=== PATIENT | male | born 1985 | race Caucasian/White ===

== ENCOUNTER 2016-08-29 09:50 | Emergency (ER) | payer OTHER ==
--- NOTE | 2016-08-29 11:20 | ED CLINICAL REPORT ---
Clinical Report - Physicians/Mid Levels [facility] [address] [place] [address] 08/29/2016 9:54 Patient: TRENT HEREDIA Time Seen: 10:11. Arrived- By private vehicle. Historian- patient. HISTORY OF PRESENT ILLNESS Chief Complaint: FALL. Location of injuries- chest. The injury occurred about 3 days ago. (forest). Fell (Pt hit his anterior L CW on a root.). The patient complains of moderate pain. No blow to the head, neck pain, loss of consciousness or seizure. Not dazed. REVIEW OF SYSTEMS No numbness, dizziness, hearing loss, difficulty breathing or weakness. No headache, nausea, abdominal pain, laceration or fever. No vomiting or urinary problems. He has had chest pain but no pain on weight bearing. All systems otherwise negative, except as recorded above. PAST HISTORY Problems: Hypertension. Urinary Calculi. Immunizations. Abscess. Diabetes Mellitus. Substance Abuse. Additional Surgeries: Amputation left little finger. Kidney cleaned of infection and stones. Medications: Ibuprofen prn. insulin humalog sliding scale, before meals. Lantus Subcutaneous 40 units in am . Methadone HCl Oral 50 mg daily. Allergies: Keflex. Shellfish-derived Products. SOCIAL HISTORY Smoker- current status unknown. History of drug use: marijuana. No alcohol use. ADDITIONAL NOTES The nursing notes have been reviewed. PHYSICAL EXAM Vital Signs: 08/29/2016 10:02 BP: 143/78. HR: 86. RR: 18. O2 saturation: 95%. Temp: 98.7 F. Pain level now: 7/10. Have been reviewed. Appearance: Alert. Oriented X3. No acute distress. Head: (Atraumatic.). Eyes: Pupils equal, round and reactive to light. EOM intact. ENT: No dental injury. Neck: Painless ROM. CVS: Heart sounds normal. Pulses normal. Respiratory: Chest wall injury: moderate tenderness and mild swelling located in the upper, left and anterior chest. No laceration. No abrasion. No ecchymosis. No deformity. No splinting present. No paradoxical movement. Abdomen: No visible injury. Soft and nontender. Back: No tenderness. ROM normal. Skin: Skin intact. Skin warm and dry. Normal skin color. Normal skin turgor. Extremities: Normal inspection. Pelvis stable. Extremities atraumatic. No lower extremity edema. Neuro: Oriented X 3. No motor deficit. No sensory deficit. LABS, X-RAYS, AND EKG Sternum / Ribs X-rays: No fracture present. Normal lung markings present. Soft tissues normal. No bony lesion present. Views: left ribs. AP of chest. Technique: good. The X-rays were independently viewed by me, interpreted by the radiologist and contemporaneously by me and discussed with the radiologist. Prior films were not available for comparison. Pulse Oximetry: 08/29/2016 10:02 O2 saturation: 95%. (FIO2 - room air). Interpretation: normal. PROGRESS AND PROCEDURES Course of Care: Patient was worked up for his chest pain with an x-ray, which was negative. Patient counseled in person regarding the patient's stable condition, test results, diagnosis and need for follow-up. Old medical records reviewed. Disposition: Discharged. Condition: stable. CLINICAL IMPRESSION Single contusion to the left anterior chest. INSTRUCTIONS Apply ice for 20 minutes three times a day as needed and until better. Don't apply ice directly to skin and don't use while asleep. Do not work today. (Your chest x-ray looks good--no broken ribs. Your lungs also look good.). Warnings: GENERAL WARNINGS: Return or contact your physician immediately if your condition worsens or changes unexpectedly, if not improving as expected, or if other problems arise. Your Current Medications: CONTINUE TAKING THE FOLLOWING MEDICATIONS: Ibuprofen prn*. insulin humalog sliding scale* : before meals. Lantus Subcutaneous : 40 units in am. Methadone HCl Oral : 50 mg daily. Follow-up: Follow up with your doctor as needed. Understanding of the discharge instructions verbalized by patient. (Electronically signed by Kelsey Smith MD 09/03/2016 21:55)
--- NOTE | 2016-08-29 11:20 | ED ORDER SUMMARY ---
..... Patient: TRENT HEREDIA OrderSheet [facility] VisitID: [id number] [address] [place] [address] 31y, M Registration Date/Time: 08/29/2016 ORDER SHEET Weight: 90.7 kg (stated) Allergies: Keflex, Shellfish-derived Products GENERAL ORDERS: Ribs Unilat w PA Chest Left Urgent (10:17 08/29/2016 Donnie WATTERS) (Ack 10:42 [facility]) (11:35 Ana Amado) MEDICATION ORDERS: IV FLUIDS: ORDER SHEET NOTES: [Electronically signed by Alyson Baptiste R.N. (11:37 08/29/2016)] [Electronically signed by Kelsey Smith MD (21:55 09/03/2016)] [Electronically locked/signed by Alyson Baptiste R.N. (11:37 08/29/2016)]
--- NOTE | 2016-08-29 11:20 | ED ORDER SUMMARY ---
..... Patient: TRENT HEREDIA OrderSheet [facility] VisitID: [id number] [address] [place] [address] 31y, M Registration Date/Time: 08/29/2016 ORDER SHEET Weight: 90.7 kg (stated) Allergies: Keflex, Shellfish-derived Products GENERAL ORDERS: Ribs Unilat w PA Chest Left Urgent (10:17 08/29/2016 Donnie WATTERS) (Ack 10:42 [facility]) (11:35 Ana Amado) MEDICATION ORDERS: IV FLUIDS: ORDER SHEET NOTES: [Electronically signed by Alyson Baptiste R.N. (11:37 08/29/2016)] [Electronically signed by Kelsey Smith MD (21:55 09/03/2016)] [Electronically locked/signed by Alyson Baptiste R.N. (11:37 08/29/2016)]
--- NOTE | 2016-08-29 11:20 | ED NURSING NOTES ---
Clinical Report - Nurses [facility] [address] [place] [address] 08/29/2016 9:54 Patient: TRENT HEREDIA TRIAGE Triage time 10:02. Acuity: LEVEL 4. Chief Complaint: FALL (GLF Thursday - tripped over a large tree root, then landed on the root with his left chest.). 10:07 08/29/16. SEPSIS SCREEN: Sepsis Screen. Negative (no infection suspected/documented). MAGGIE COMA SCORE: Maggie Coma Scale: 15- eyes open spontaneously (4); best verbal response- oriented x 4 (5); best motor response- obeys commands (6). --10:07 Danielito Eng R.N. 10:02 08/29/16. BP: 143/78. HR: 86. RR: 18. O2 saturation: 95% on room air. Temp: 98.7 F (oral). Pain level now: 12/01. --10:07 Danielito Eng R.N. Weight: 90.7 kg stated. Height/Length: 73 inches Per Patient. BMI: 26.4. --10:05 Danielito Eng R.N. Medications insulin humalog sliding scale, before meals. Lantus Subcutaneous 40 units in am . Methadone HCl Oral 50 mg daily. --10:04 Danielito Eng R.N. Ibuprofen prn. --10:04 Danielito Eng R.N. Allergies Keflex. --10:04 Danielito Eng R.N. Shellfish-derived Products. --10:04 Danielito Eng R.N. History Arrived by private vehicle. Historian: patient. 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 PAST MEDICAL HX: Tetanus status: up-to-date. SOCIAL HX: Light tobacco smoker (cigarette)- less than 1/2 a pack per day. History of occasional drug use: marijuana. No alcohol use. ABUSE ASSESSMENT: No report of abuse. --10:07 Danielito Eng R.N. PROBLEMS: Ureterolithiasis. Hypertension. Urinary Calculi. UTI - Urinary Tract Infection. Abscess. Diabetes Mellitus. Substance Abuse. --10: Danielito Eng R.N. The following entry was modified by Kelsey Smith MD, 10:18 Reason - duplicate <<STRICKEN ENTRY-- Lifestyle / Substance Problems. --10:18 Kelsey Smith MD --END STRIKE>>. ADDITIONAL SURGERIES: Amputation left little finger. Kidney cleaned of infection and stones. --10: Danielito Eng R.N. Interventions ID band on patient. To treatment room. --10: Danielito Eng R.N. PHYSICAL ASSESSMENT 10:08/29/16. Ambulatory to room. GENERAL / NEURO / PSYCH: Alert. Oriented X 4. Appears in no acute distress. Appears in pain. HEENT: Pupils equal, round and reactive to light. Head non-tender. RESPIRATORY: Respirations not labored. Left upper, mid-, anterior and posterior chest wall tenderness. Breath sounds within normal limits. ( increased pain with breathing). CVS: Pulses within normal limits. Capillary refill less than 2 seconds. GI / : Abdomen soft and nontender. EXTREMITIES: Extremities exhibit normal ROM. Neuro-vascular status intact to the extremity. SKIN: Skin intact. Skin is warm and dry. --10:09 Danielito Eng R.N. NURSING PROGRESS NOTES 10:08/29/16. Patient gowned. Reassurance given. Two patient identifiers checked. Call light placed in reach. Bed placed in lowest position. Brakes of bed on. Patient ready for evaluation- chart flagged. --10:10 Danielito Eng R.N. 10:15. Patient walked to radiology with tech. --10:30 Joey Dykes R.N. 10:30. Patient walked back to ED from radiology with tech. --10:31 Joey Dykes R.N. DISPOSITION / DISCHARGE Condition at departure: improved. No learning barriers present. Discharge instructions provided and reviewed with the patient. Treatments reviewed (ice for chest). Work note given. Patient verbalized understanding. Written instructions provided in Czech. The patient was discharged by the physician. He was discharged home. He left the Emergency Department ambulatory and via private vehicle. Driving (Friend). ( Patient has no further questions). --11:35 Alyson Baptiste R.N. 11:32 08/29/16. BP: 127/72 (regular adult cuff) taken on the left arm, while sitting. HR: 80. RR: 16 (regular). O2 saturation: 96% on room air. Temp: 98.7 F (oral). Pain level now: 12/01. --11:35 Alyson Baptiste R.N. Departure time: 11:36 Aug 29 2016. --11:36 Alyson Baptiste R.N. Locked/Released at 08/29/2016 11:37 by Alyson Baptiste R.N.
--- NOTE | 2016-08-29 11:20 | ED NURSING NOTES ---
Clinical Report - Nurses [facility] [address] [place] [address] 08/29/2016 9:54 Patient: TRENT HEREDIA TRIAGE Triage time 10:02. Acuity: LEVEL 4. Chief Complaint: FALL (GLF Thursday - tripped over a large tree root, then landed on the root with his left chest.). 10:07 08/29/16. SEPSIS SCREEN: Sepsis Screen. Negative (no infection suspected/documented). MAGGIE COMA SCORE: Maggie Coma Scale: 15- eyes open spontaneously (4); best verbal response- oriented x 4 (5); best motor response- obeys commands (6). --10:07 Danielito Eng R.N. 10:02 08/29/16. BP: 143/78. HR: 86. RR: 18. O2 saturation: 95% on room air. Temp: 98.7 F (oral). Pain level now: 12/01. --10:07 Danielito Eng R.N. Weight: 90.7 kg stated. Height/Length: 73 inches Per Patient. BMI: 26.4. --10:05 Danielito Eng R.N. Medications insulin humalog sliding scale, before meals. Lantus Subcutaneous 40 units in am . Methadone HCl Oral 50 mg daily. --10:04 Danielito Eng R.N. Ibuprofen prn. --10:04 Danielito Eng R.N. Allergies Keflex. --10:04 Danielito Eng R.N. Shellfish-derived Products. --10:04 Danielito Eng R.N. History Arrived by private vehicle. Historian: patient. 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 PAST MEDICAL HX: Tetanus status: up-to-date. SOCIAL HX: Light tobacco smoker (cigarette)- less than 1/2 a pack per day. History of occasional drug use: marijuana. No alcohol use. ABUSE ASSESSMENT: No report of abuse. --10:07 Danielito Eng R.N. PROBLEMS: Ureterolithiasis. Hypertension. Urinary Calculi. UTI - Urinary Tract Infection. Abscess. Diabetes Mellitus. Substance Abuse. --10: Danielito Eng R.N. The following entry was modified by Kelsey Smith MD, 10:18 Reason - duplicate <<STRICKEN ENTRY-- Lifestyle / Substance Problems. --10:18 Kelsey Smith MD --END STRIKE>>. ADDITIONAL SURGERIES: Amputation left little finger. Kidney cleaned of infection and stones. --10: Danielito Eng R.N. Interventions ID band on patient. To treatment room. --10: Danielito Eng R.N. PHYSICAL ASSESSMENT 10:08/29/16. Ambulatory to room. GENERAL / NEURO / PSYCH: Alert. Oriented X 4. Appears in no acute distress. Appears in pain. HEENT: Pupils equal, round and reactive to light. Head non-tender. RESPIRATORY: Respirations not labored. Left upper, mid-, anterior and posterior chest wall tenderness. Breath sounds within normal limits. ( increased pain with breathing). CVS: Pulses within normal limits. Capillary refill less than 2 seconds. GI / : Abdomen soft and nontender. EXTREMITIES: Extremities exhibit normal ROM. Neuro-vascular status intact to the extremity. SKIN: Skin intact. Skin is warm and dry. --10:09 Danielito Eng R.N. NURSING PROGRESS NOTES 10:08/29/16. Patient gowned. Reassurance given. Two patient identifiers checked. Call light placed in reach. Bed placed in lowest position. Brakes of bed on. Patient ready for evaluation- chart flagged. --10:10 Danielito Eng R.N. 10:15. Patient walked to radiology with tech. --10:30 Joey Dykes R.N. 10:30. Patient walked back to ED from radiology with tech. --10:31 Joey Dykes R.N. DISPOSITION / DISCHARGE Condition at departure: improved. No learning barriers present. Discharge instructions provided and reviewed with the patient. Treatments reviewed (ice for chest). Work note given. Patient verbalized understanding. Written instructions provided in Iraqi. The patient was discharged by the physician. He was discharged home. He left the Emergency Department ambulatory and via private vehicle. Driving (Friend). ( Patient has no further questions). --11:35 Alyson Baptiste R.N. 11:32 08/29/16. BP: 127/72 (regular adult cuff) taken on the left arm, while sitting. HR: 80. RR: 16 (regular). O2 saturation: 96% on room air. Temp: 98.7 F (oral). Pain level now: 12/01. --11:35 Alyson Baptiste R.N. Departure time: 11:36 Aug 29 2016. --11:36 Alyson Baptiste R.N. Locked/Released at 08/29/2016 11:37 by Alyson Baptiste R.N.
--- NOTE | 2016-08-29 11:20 | ED CLINICAL REPORT ---
Clinical Report - Physicians/Mid Levels [facility] [address] [place] [address] 08/29/2016 9:54 Patient: TRENT HEREDIA Time Seen: 10:11. Arrived- By private vehicle. Historian- patient. HISTORY OF PRESENT ILLNESS Chief Complaint: FALL. Location of injuries- chest. The injury occurred about 3 days ago. (forest). Fell (Pt hit his anterior L CW on a root.). The patient complains of moderate pain. No blow to the head, neck pain, loss of consciousness or seizure. Not dazed. REVIEW OF SYSTEMS No numbness, dizziness, hearing loss, difficulty breathing or weakness. No headache, nausea, abdominal pain, laceration or fever. No vomiting or urinary problems. He has had chest pain but no pain on weight bearing. All systems otherwise negative, except as recorded above. PAST HISTORY Problems: Hypertension. Urinary Calculi. Immunizations. Abscess. Diabetes Mellitus. Substance Abuse. Additional Surgeries: Amputation left little finger. Kidney cleaned of infection and stones. Medications: Ibuprofen prn. insulin humalog sliding scale, before meals. Lantus Subcutaneous 40 units in am . Methadone HCl Oral 50 mg daily. Allergies: Keflex. Shellfish-derived Products. SOCIAL HISTORY Smoker- current status unknown. History of drug use: marijuana. No alcohol use. ADDITIONAL NOTES The nursing notes have been reviewed. PHYSICAL EXAM Vital Signs: 08/29/2016 10:02 BP: 143/78. HR: 86. RR: 18. O2 saturation: 95%. Temp: 98.7 F. Pain level now: 7/10. Have been reviewed. Appearance: Alert. Oriented X3. No acute distress. Head: (Atraumatic.). Eyes: Pupils equal, round and reactive to light. EOM intact. ENT: No dental injury. Neck: Painless ROM. CVS: Heart sounds normal. Pulses normal. Respiratory: Chest wall injury: moderate tenderness and mild swelling located in the upper, left and anterior chest. No laceration. No abrasion. No ecchymosis. No deformity. No splinting present. No paradoxical movement. Abdomen: No visible injury. Soft and nontender. Back: No tenderness. ROM normal. Skin: Skin intact. Skin warm and dry. Normal skin color. Normal skin turgor. Extremities: Normal inspection. Pelvis stable. Extremities atraumatic. No lower extremity edema. Neuro: Oriented X 3. No motor deficit. No sensory deficit. LABS, X-RAYS, AND EKG Sternum / Ribs X-rays: No fracture present. Normal lung markings present. Soft tissues normal. No bony lesion present. Views: left ribs. AP of chest. Technique: good. The X-rays were independently viewed by me, interpreted by the radiologist and contemporaneously by me and discussed with the radiologist. Prior films were not available for comparison. Pulse Oximetry: 08/29/2016 10:02 O2 saturation: 95%. (FIO2 - room air). Interpretation: normal. PROGRESS AND PROCEDURES Course of Care: Patient was worked up for his chest pain with an x-ray, which was negative. Patient counseled in person regarding the patient's stable condition, test results, diagnosis and need for follow-up. Old medical records reviewed. Disposition: Discharged. Condition: stable. CLINICAL IMPRESSION Single contusion to the left anterior chest. INSTRUCTIONS Apply ice for 20 minutes three times a day as needed and until better. Don't apply ice directly to skin and don't use while asleep. Do not work today. (Your chest x-ray looks good--no broken ribs. Your lungs also look good.). Warnings: GENERAL WARNINGS: Return or contact your physician immediately if your condition worsens or changes unexpectedly, if not improving as expected, or if other problems arise. Your Current Medications: CONTINUE TAKING THE FOLLOWING MEDICATIONS: Ibuprofen prn*. insulin humalog sliding scale* : before meals. Lantus Subcutaneous : 40 units in am. Methadone HCl Oral : 50 mg daily. Follow-up: Follow up with your doctor as needed. Understanding of the discharge instructions verbalized by patient. (Electronically signed by eKlsey Smith MD 09/03/2016 21:55)
--- NOTE | 2016-08-29 11:28 | DIAGNOSTIC IMAGING REPORT ---
PROCEDURE: XR RIBS UNILAT W/PA CHEST-LT INDICATION: TRAUMA/INJURY TECHNIQUE: Two views of the left ribs with single PA view chest. COMPARISON: None. FINDINGS: LEFT RIBS: No displaced rib fractures. No suspicious rib lesions. CHEST: Normal cardiomediastinal contour. Clear lungs without pleural effusion, pneumothorax, or contusion. The other visible osseous structures are intact. IMPRESSION: 1. Intact left ribs. 2. Normal chest without radiographic evidence of trauma.
--- NOTE | 2016-09-03 21:55 | ED MED RECONCILIATION SUMMARY ---
Patient: TRENT HEREDIA Medication Reconciliation Report [facility] VisitID: [id number] [address] [place] [address] 31y, M Registration Date/Time: 08/29/2016 Weight: 90.7 kg Height/Length: 73 in. BMI: 26.4 ALLERGIES: Keflex, Shellfish-derived Products The patient's Home Medications are listed below: CONTINUE TAKING THE FOLLOWING MEDICATIONS: Ibuprofen prn insulin humalog sliding scale, before meals Lantus Subcutaneous 40 units in am Methadone HCl Oral 50 mg daily The source(s) of the original Home Medication information: Not obtained. The following Medications were given to the patient in the Emergency Department: None. The following Medications were prescribed to the patient: None.
--- NOTE | 2016-09-03 21:55 | ED MAR SUMMARY ---
..... Medication Administration Record [facility] [address] [place] [id number] Patient: TRENT HEREDIA Visit ID: [id number] 31y, M Weight: 90.7 kg Height/Length: 73 in BMI: 26.4 ALLERGIES: Keflex, Shellfish-derived Products
--- NOTE | 2016-09-03 21:55 | ED DISCHARGE INSTRUCTIONS ---
Patient: TRENT HEREDIA General Instructions [facility] VisitID: [id number] [place] [address] 31y, M Registration Date/Time: 08/29/2016 Single contusion to the left anterior chest. INSTRUCTIONS Apply ice for 20 minutes three times a day as needed and until better. Don't apply ice directly to skin and don't use while asleep. Do not work today. (Your chest x-ray looks good--no broken ribs. Your lungs also look good.). Warnings: GENERAL WARNINGS: Return or contact your physician immediately if your condition worsens or changes unexpectedly, if not improving as expected, or if other problems arise. Your Current Medications: CONTINUE TAKING THE FOLLOWING MEDICATIONS: Ibuprofen prn*. insulin humalog sliding scale* : before meals. Lantus Subcutaneous : 40 units in am. Methadone HCl Oral : 50 mg daily. Follow-up: Follow up with your doctor as needed. Understanding of the discharge instructions verbalized by patient. ADDITIONAL INFORMATION Chest Contusion Acontusion is a bruise to the skin, muscle or ribs. It may cause pain, tenderness, swelling and a purplish discoloration. Contusions take a few days to a few weeks to heal. Home Care: Rest. You should not be doing any heavy lifting or strenuous exertion, or any activity that causes pain. You may use acetaminophen (Tylenol) or ibuprofen (Motrin, Advil) to control pain, unless another pain medicine was prescribed. [ NOTE: If you have chronic liver or kidney disease or ever had a stomach ulcer or GI bleeding, talk with your doctor before using these medicines.] Follow Up with your doctor during the next week or as directed. Get Prompt Medical Attention if any of the following occur: Shortness of breath Increasing chest pain with breathing Dizziness, weakness or fainting New or worsening of abdominal pain Fever of 100.4F (38C) or higher, or as directed by your healthcare provider You have been given the following additional information: Chest Wall Contusion Do not work today. (Electronically signed by Kelsey Smith MD 09/03/2016 21:55)
--- NOTE | 2016-09-03 21:55 | ED MED RECONCILIATION SUMMARY ---
Patient: TRENT HEREDIA Medication Reconciliation Report [facility] VisitID: [id number] [address] [place] [address] 31y, M Registration Date/Time: 08/29/2016 Weight: 90.7 kg Height/Length: 73 in. BMI: 26.4 ALLERGIES: Keflex, Shellfish-derived Products The patient's Home Medications are listed below: CONTINUE TAKING THE FOLLOWING MEDICATIONS: Ibuprofen prn insulin humalog sliding scale, before meals Lantus Subcutaneous 40 units in am Methadone HCl Oral 50 mg daily The source(s) of the original Home Medication information: Not obtained. The following Medications were given to the patient in the Emergency Department: None. The following Medications were prescribed to the patient: None.
--- NOTE | 2016-09-03 21:55 | ED DISCHARGE INSTRUCTIONS ---
Patient: TRENT HEREDIA General Instructions [facility] VisitID: [id number] [place] [address] 31y, M Registration Date/Time: 08/29/2016 Single contusion to the left anterior chest. INSTRUCTIONS Apply ice for 20 minutes three times a day as needed and until better. Don't apply ice directly to skin and don't use while asleep. Do not work today. (Your chest x-ray looks good--no broken ribs. Your lungs also look good.). Warnings: GENERAL WARNINGS: Return or contact your physician immediately if your condition worsens or changes unexpectedly, if not improving as expected, or if other problems arise. Your Current Medications: CONTINUE TAKING THE FOLLOWING MEDICATIONS: Ibuprofen prn*. insulin humalog sliding scale* : before meals. Lantus Subcutaneous : 40 units in am. Methadone HCl Oral : 50 mg daily. Follow-up: Follow up with your doctor as needed. Understanding of the discharge instructions verbalized by patient. ADDITIONAL INFORMATION Chest Contusion Acontusion is a bruise to the skin, muscle or ribs. It may cause pain, tenderness, swelling and a purplish discoloration. Contusions take a few days to a few weeks to heal. Home Care: Rest. You should not be doing any heavy lifting or strenuous exertion, or any activity that causes pain. You may use acetaminophen (Tylenol) or ibuprofen (Motrin, Advil) to control pain, unless another pain medicine was prescribed. [ NOTE: If you have chronic liver or kidney disease or ever had a stomach ulcer or GI bleeding, talk with your doctor before using these medicines.] Follow Up with your doctor during the next week or as directed. Get Prompt Medical Attention if any of the following occur: Shortness of breath Increasing chest pain with breathing Dizziness, weakness or fainting New or worsening of abdominal pain Fever of 100.4F (38C) or higher, or as directed by your healthcare provider You have been given the following additional information: Chest Wall Contusion Do not work today. (Electronically signed by Kelsey Smith MD 09/03/2016 21:55)
--- NOTE | 2016-09-03 21:55 | ED MAR SUMMARY ---
..... Medication Administration Record [facility] [address] [place] [id number] Patient: TRENT HEREDIA Visit ID: [id number] 31y, M Weight: 90.7 kg Height/Length: 73 in BMI: 26.4 ALLERGIES: Keflex, Shellfish-derived Products
== END 2016-08-29 11:36 | disposition home or self-care (01) ==
LOC: ED SRH 09:50
DX: S20.212A Contusion of left front wall of thorax, initial encounter (principal); W01.198A Fall on same level from slipping, tripping and stumbling with subsequent striking against other object, initial encounter; Y92.821 Forest as the place of occurrence of the external cause; Y99.9 Unspecified external cause status; I10 Essential (primary) hypertension; E11.9 Type 2 diabetes mellitus without complications; Z79.4 Long term (current) use of insulin; Z88.1 Allergy status to other antibiotic agents; Z91.013 Allergy to seafood